=== PATIENT | female | born 2000 | race Caucasian/White ===

== ENCOUNTER → 2022-12-13 | Outpatient (CLI) | payer OTHER ==
[2022-12-13 17:21] LABS: HEMATOCRIT 41.4 % (36.0-47.0); HEMOGLOBIN 14.5 g/dl (12.0-15.5); MEAN CORPUSCULAR VOLUME 85.5 fl (80.0-96.0); PLATELET COUNT, AUTOMATED 299 10^3/uL (150-450); RED BLOOD COUNT 4.84 10^6/uL (4.00-5.40); WHITE BLOOD COUNT 11.4 10^3/uL (4.0-10.0)
[2022-12-13 18:14] LABS: HIV 1&2 SCREEN CENTAUR NEGATIVE (NEGATIVE)
[2022-12-13 18:22] LABS: HEPATITIS C VIRUS ABY INDEX < 0.0 INDEX (<0.8)
[2022-12-13 18:29] LABS: GC DNA AMPLIFICATION NEGATIVE (NEGATIVE)
== END ==
LOC: M PLALAB 15:55
PROVIDERS: ATTEND Advanced Practice Midwife
DX: Z36.9 Encounter for antenatal screening, unspecified (principal)

== ENCOUNTER → 2023-02-07 | Outpatient (CLI) | payer OTHER | LOC: M WHC 11:55 | PROVIDERS: ATTEND Advanced Practice Midwife | DX: Z34.92 Encounter for supervision of normal pregnancy, unspecified, second trimester (principal); Z3A.21 21 weeks gestation of pregnancy ==

== ENCOUNTER → 2023-03-15 | Outpatient (CLI) | payer OTHER ==
[2023-03-15 15:21] LABS: HEMATOCRIT 34.5 % (36.0-47.0); HEMOGLOBIN 11.5 g/dl (12.0-15.5); MEAN CORPUSCULAR HEMOGLOBIN 30.4 pg (27.0-33.0); MEAN CORPUSCULAR HGB CONC 33.3 g/dl (32.0-36.5); MEAN CORPUSCULAR VOLUME 91.3 fl (80.0-96.0); PLATELET COUNT, AUTOMATED 241 10^3/uL (150-450); RED BLOOD COUNT 3.78 10^6/uL (4.00-5.40); WHITE BLOOD COUNT 10.2 10^3/uL (4.0-10.0)
[2023-03-15 16:37] LABS: GC DNA AMPLIFICATION NEGATIVE (NEGATIVE)
== END ==
LOC: M PLALAB 08:42
PROVIDERS: ATTEND Advanced Practice Midwife
DX: Z34.92 Encounter for supervision of normal pregnancy, unspecified, second trimester (principal)

== ENCOUNTER → 2023-05-18 | Outpatient (REF) | payer OTHER | LOC: M SFHCWAGY 12:59 | PROVIDERS: ATTEND Specialist | DX: Z34.83 Encounter for supervision of other normal pregnancy, third trimester (principal) ==

== ENCOUNTER 2023-06-07 12:36 | Outpatient (CLI) | payer OTHER ==
[~2023-06-07] VITALS: Ht 160 cm; Wt 63.9 kg
[2023-06-07] MEDS ORDERED: PREN200C PO (12:57)
[2023-06-07 12:59] VITALS: BP 118/66
== END 2023-06-07 15:00 | disposition home or self-care (01) ==
LOC: M LDO 12:36
PROVIDERS: ATTEND Obstetrics & Gynecology
DX: O26.893 Other specified pregnancy related conditions, third trimester (principal); R10.2 Pelvic and perineal pain; Z3A.38 38 weeks gestation of pregnancy
CPT/HCPCS: 59025; G0463

== ENCOUNTER 2023-06-12 15:35 | Inpatient (IN) | payer OTHER ==
[2023-06-12] VITALS (26 sets, daily range): BP systolic 103–149; BP diastolic 55–110
[~2023-06-12] VITALS: Ht 160 cm; Wt 64.6 kg
[~2023-06-12 15:35] MED LIST: PREN200C PO
[2023-06-12] MEDS ORDERED: LIDOCAINE 1% MDV 20ML VIAL INFIL PRN (16:15)
[2023-06-12] MEDS ORDERED: OXYTOCIN DRIP 30 UNITS in IV 1 EA IV PRN (16:15)
[2023-06-12] MEDS ORDERED: HOME MED LIST COMPLETE! XX SCH (16:25)
[2023-06-12] MEDS ORDERED: LACTATED RINGER'S 1000 ML IV STA (16:29)
[2023-06-12] MEDS ORDERED: LR 1,000 ML IV SCH (16:30)
[2023-06-12 16:35] LABS: HEMATOCRIT 38.8 % (36.0-47.0); HEMOGLOBIN 12.2 g/dl (12.0-15.5); MEAN CORPUSCULAR HEMOGLOBIN 24.1 pg (27.0-33.0); MEAN CORPUSCULAR HGB CONC 31.4 g/dl (32.0-36.5); MEAN CORPUSCULAR VOLUME 76.5 fl (80.0-96.0); PLATELET COUNT, AUTOMATED 243 10^3/uL (150-450); RED BLOOD COUNT 5.07 10^6/uL (4.00-5.40)
[2023-06-12] MEDS ORDERED: LR 500 ML IV PRN (17:10)
[2023-06-12] MEDS ORDERED: ONDANSETRON 4MG 2ML VIAL IV PRN (17:10)
[2023-06-12] MEDS ORDERED: FENTANYL/ROPIVACAINE/NACL BAG 100 ML EPIDURAL SCH (17:10)
[2023-06-12] MEDS ORDERED: ePHEDrine SULFATE 25 MG/5 ML(5MG/ML) SYRINGE IVP PRN (17:10)
[2023-06-12] MEDS ORDERED: diphenhydrAMINE 50MG/ML VIAL IV PRN (17:10)
[2023-06-12] MEDS ORDERED: FENTANYL 2MCG/ML ROPIVACAINE 0.2% IN 0.9% NACL 100ML IVBAG As Ordered ONE (17:10)
[2023-06-12] MEDS ORDERED: EPIDURAL/PCA KEYS XX PRN (17:10)
[2023-06-12] MEDS ORDERED: NALOXONE INJ 0.4MG/1ML VIAL IV PRN (17:10)
[2023-06-12] MEDS ORDERED: METHYLERGONOVINE MALEATE 0.2 MG TAB PO PRN (22:30)
[2023-06-12] MEDS ORDERED: ACETAMINOPHEN TAB 650MG DOSE (2X325MG) PO PRN (22:30)
[2023-06-12] MEDS ORDERED: RHOGAM 300MCG (1500IU) INJ IM SCH (22:30)
[2023-06-12] MEDS ORDERED: DOCUSATE SODIUM 100MG CAPSULE PO PRN (22:30)
[2023-06-12] MEDS ORDERED: DIBUCAINE 1% OINTMENT 30GM TOP PRN (22:30)
[2023-06-12] MEDS ORDERED: IBUPROFEN 600MG TAB PO PRN (22:30)
[2023-06-13] MEDS: ACETAMINOPHEN 500 MG TAB PO PRN ×3 (00:52→13:46)
[2023-06-13 06:00] VITALS: BP 112/62; O2SAT 99
[2023-06-13] MEDS: PRENATAL VITAMINS CHEWABLE TABLET PO SCH (08:19)
[2023-06-13] MEDS: IBUPROFEN 800 MG TAB PO PRN ×2 (08:19→17:51)
[2023-06-13 17:58] VITALS: BP 111/69; O2SAT 97
[2023-06-14] MEDS: IBUPROFEN 800 MG TAB PO PRN (04:59)
[2023-06-14 06:00] VITALS: BP 119/71; O2SAT 100
[2023-06-14] MEDS: PRENATAL VITAMINS CHEWABLE TABLET PO SCH (08:55)
[2023-06-14] MEDS ORDERED: MEASLES,MUMPS,RUBELLA VACCINE INJ (MMR-II) SC.IMMUN ONE (09:00)
== END 2023-06-14 13:50 | disposition home or self-care (01) | DRG 560 ==
LOC: M LDO 15:35 → M LDI 15:36 → M OBS 23:45
PROVIDERS: ADMIT Specialist; ATTEND Specialist
PROC: 10E0XZZ Delivery of Products of Conception, External Approach (ICD-10-PCS; principal; 2023-06-12)
PROC: 10907ZC Drainage of Amniotic Fluid, Therapeutic from Products of Conception, Via Natural or Artificial Opening (ICD-10-PCS; 2023-06-12)
DX: O69.81X0 Labor and delivery complicated by cord around neck, without compression, not applicable or unspecified (principal); Z37.0 Single live birth; Z3A.39 39 weeks gestation of pregnancy

== ENCOUNTER → 2024-09-08 | Outpatient (REF) | payer OTHER ==
[2024-09-11 14:42] LABS: HPV APTIMA Not Detected (Not Detected)
== END ==
LOC: M SFHCWAGY 14:59
PROVIDERS: ATTEND Nurse Practitioner Family
DX: Z12.4 Encounter for screening for malignant neoplasm of cervix (principal); R87.610 Atypical squamous cells of undetermined significance on cytologic smear of cervix (ASC-US)